=== PATIENT | male | born 1970 | race Caucasian/White ===

== ENCOUNTER 2020-08-15 11:59 | Outpatient (CLI) | payer OTHER, SELFPAY ==
--- NOTE | ~2020-08-15 | US_ITS ---
US soft tissue groin LT DATE: 08/15/2020 12:20 INDICATION: Left inguinal pain for several weeks TECHNIQUE: Real-time imaging of left inguinal area COMPARISON: None FINDINGS: A couple of lymph nodes with normal architecture are noted, the largest measuring up to 6.7 x 20 mm. No apparent inguinal hernia is noted. IMPRESSION: Nonspecific lymph nodes Reviewed, dictated and finalized at [facility]. Reviewed, dictated and finalized at location [facility]. UTING CONSULTANT IMPRESSION: Nonspecific lymph nodes
== END 2020-08-15 12:00 ==
DX: R10.32 Left lower quadrant pain (principal)
CPT/HCPCS: 76882

== ENCOUNTER 2020-08-19 14:43 | Outpatient (CLI) | payer OTHER, SELFPAY ==
--- NOTE | ~2020-08-19 | US_ITS ---
EXAMINATION: US scrotum doppler EXAM DATE: 08/19/2020 15:26 INDICATION: Left testicular pain. TECHNIQUE: Multiple grayscale and Doppler images of the testicles and scrotum were obtained bilateral ly. There is no prior study for comparison. FINDINGS: Right testicle measures 3.0 x 2.1 x 4.0 cm and is morphologically normal. Low resistance Doppler lupe w confirmed. The epididymis is unremarkable. There is no hydrocele or varicocele. Left testicle measures 3.3 x 2.0 x 3.7 cm and is morphologically normal. Low resistance Doppler flow confirmed. The epididymis is unremarkable. Small to moderate-sized varicocele, vein diameter up to 4 mm. IMPRESSION: 1. Small to moderate size left-sided varicocele. Reviewed, dictated and finalized at location A. ATION COORDINATOR
== END 2020-08-19 14:44 ==
LOC: MICIMG 14:44
DX: N50.819 Testicular pain, unspecified (principal); I86.1 Scrotal varices
CPT/HCPCS: 76870; 93976